=== PATIENT | male | born 1985 ===

== ENCOUNTER 2017-06-06 06:38 | Day surgery (SDC) | payer SELFPAY ==
[2017-06-06 07:18] VITALS: BMI 28.3
[2017-06-06] MEDS ORDERED: Lactated Ringer's 1,000 ML IV ONE ×2 (08:42→11:15)
[2017-06-06] MEDS ORDERED: cefTRIAXone (Rocephin) 1 gm Inj ONE (09:27)
[2017-06-06] MEDS ORDERED: Lidocaine 1% Inj (20ml) ONE (09:27)
[2017-06-06] MEDS ORDERED: Propofol 10 mg/ml Inj (20 ML) ONE (09:29)
[2017-06-06] MEDS ORDERED: Midazolam 2 MG/2 ML VIAL ONE (09:30)
[2017-06-06] MEDS ORDERED: Succinylcholine 200 mg/10 ml Inj IV ONE (09:30)
[2017-06-06] MEDS ORDERED: Bupivacaine 0.5% Inj(30mL) ONE (10:46)
[2017-06-06] MEDS ORDERED: Liquid Adhesive TOP ONE (11:13)
[2017-06-06] MEDS ORDERED: Bupivacaine 0.5% Inj(30mL) IJ ONE (11:25)
[2017-06-06] MEDS: HYDROmorphone 0.5 mg/0.5 ml ISec IVP PRN ×2 (11:52→12:14)
[2017-06-06 16:44] VITALS: RESP 18
[2017-06-06 16:45] VITALS: BP 103/67; PULSE 67; TEMP 98.4; O2SAT 97
--- NOTE | 2017-06-06 22:13 | OP ---
PROCEDURE DATE: 06/06/2017 PREOPERATIVE DIAGNOSIS: Undescended right testicle. POSTOPERATIVE DIAGNOSIS: Right femoral hernia. PROCEDURE PERFORMED: Right inguinal exploration followed by repair of right femoral hernia. DESCRIPTION OF PROCEDURE: The patient was placed on the operating room table in a supine position. The area of the groin was draped and prepped in a sterile manner. There was a bulge noted in the right inguinal area consistent with a recent ultrasound suggesting the presence of a testicle in that area. An incision was made over the greatest portion of that bulge and as I began to explore it, it clearly then turned out to be not a testicle, it was a loop of bowel that had been exposed to this area. At this time, I palpated to feel for the testicle, I was able to manually palpate, but could not feel the testicle at this level. I attempted to reduce this femoral hernia and was unable to do so and at that point, I called general surgical consult and Dr. Enriquez came in at this time and was able to manually reduce the hernia, identified it as a femoral hernia, and placed a plug in the femoral canal once the hernia was completely reduced. Once this was done, it was two layer closure that he performed and a superficial closure was made with Ethibond and finally covered with Dermabond liquid as a final closure. Blood loss was less than 20 mL. The patient did sustain the procedure well and was taken from the operating room in good condition. Monica Brar MD
--- NOTE | 2017-06-07 08:04 | OP ---
PROCEDURE DATE: 06/06/2017 INTRAOPERATIVE CONSULTATION PREOPERATIVE DIAGNOSIS: Right Femoral hernia. POSTOPERATIVE DIAGNOSIS: Right Femoral hernia. PROCEDURE: Repair of the right femoral hernia with plug. SPECIMEN: None. SURGEON: Andrews Enriquez MD MARKET DIRECTOR: Monica Brar MD TYPE OF ANESTHESIA: General endotracheal intubation. INTRAVENOUS FLUIDS: Crystalloids. ESTIMATED BLOOD LOSS: 5 mL. INTRAOPERATIVE FINDINGS: Femoral hernia. BRIEF HISTORY: Mr. Gary Alexandra is the patient of Dr. Brar who came in for elective right orchiectomy. The patient has a history of undescended testicle on the right side and preoperatively underwent ultrasound showing testicle in right groin region. However, during the case as per Dr. Brar because I was not present for this part of the procedure, he did not identified the testicle, but found rather large femoral hernia for which he was able to bring out the contents of the abdominal cavity that appeared to be a bowel and omentum. DESCRIPTION OF THE PROCEDURE: Bowel and omentum were reduced back into the abdominal cavity and defect was plugged up with extra large plug and secured in place circumferentially with interrupted 2-0 Vicryl sutures. Once this was accomplished, then a position of the plug was satisfactory, anesthesia was asked to perform a Valsalva maneuver. Upon performance of the Valsalva maneuver, there appeared to be no herniation through the defects. So at this point in time, the fascial layer was closed with several interrupted 2-0 Vicryl sutures and subsequent to that several deep dermal sutures were placed with 3-0 Vicryl suture in an interrupted fashion and at this point in time, incision was infiltrated with Marcaine anesthetic and subsequent to that 4-0 Monocryl suture was used to approximated skin in a running subcuticular fashion. At the end of the procedure, the patient's right groin was washed and dried and the Dermabond was applied to the site of the incision. The patient was successfully extubated by the Anesthesia Team, transferred to the stretcher and taken to the recovery room in a stable condition. Dr. Brar's part of the procedure will be dictated separately. Andrews Enriquez MD [facility] # [id number]
== END 2017-06-06 17:00 | disposition home or self-care (01) ==
LOC: H.OPSURG 06:38
PROVIDERS: ATTEND Urology
DX: K41.90 Unilateral femoral hernia, without obstruction or gangrene, not specified as recurrent (principal)
CPT/HCPCS: 49550; C1781; J0330; J0696; J1170; J1885; J2001; J2250; J2704; J2765; J3010; J7120